=== PATIENT | male | born 2000 | race Caucasian/White ===

== ENCOUNTER 2023-08-13 20:28 | Emergency (ER) | payer BC, OTHER ==
[~2023-08-13] VITALS: Ht 175.3 cm; Wt 68.0 kg
[2023-08-13 22:44] LABS: *BILIRUBIN,URIN NEGATIVE (NEGATIVE); *BLOOD, URINE NEGATIVE (NEGATIVE); *CLARITY,URINE CLEAR (CLEAR); *COLOR,URINE YELLOW (YELLOW); *KETONES,URINE NEGATIVE (NEGATIVE); *PROTEIN,URINE NEGATIVE (NEGATIVE); *UROBILINOGEN,URINE 0.2 E.U./dl (NORMAL); LEUKOCYTE ESTERASE ,URINE NEGATIVE (NEGATIVE); NITRITE, URINE NEGATIVE (NEGATIVE); UGLUCOSE NEGATIVE (NEGATIVE)
[2023-08-13 23:20] VITALS: BP 145/78; TEMP 98; O2SAT 99
== END 2023-08-13 23:20 | disposition home or self-care (01) ==
LOC: ER 20:33
DX: N50.812 Left testicular pain (principal); N50.9 Disorder of male genital organs, unspecified
CPT/HCPCS: 76870; A4606; A4663